=== PATIENT | female | born 1980 | race Hispanic/Latino ===

== ENCOUNTER 2024-08-12 18:24 | Emergency (ER) | payer OTHER ==
[~2024-08-12] VITALS: Ht 157.5 cm; Wt 113.0 kg
[2024-08-12] MEDS ORDERED: ACETAMINOPHEN 500 MG TAB PO ONE (18:45)
[2024-08-12 18:53] LABS: BASOPHILS 0.2 % (0-2); EOSINOPHILS 0.1 % (0-6); HEMATOCRIT 35.3 % (35.0-50.0); HEMOGLOBIN 11.8 g/dL (12.0-18.0); LYMPHOCYTES 10.8 % (24-44); MCH 29.7 (27-36); MCHC 33.5 g/dl (30-36); MCV 88.7 fl (81-99); MONOCYTES 9.3 % (0-12); NEUTROPHILS 79.6 % (39-80); PLATELET COUNT 230 K/uL (140-440); RBC 3.98 M/ul (4.3-5.7); RDW 15.2 (10.5-15.0)
[2024-08-12 19:10] LABS: ALBUMIN 2.4 g/dL (3.4-5.0); ALBUMIN/GLOBULIN RATIO 0.53 (1.1-2.4); ANION GAP 11.2 (7-21); BILIRUBIN, TOTAL 0.4 mg/dL (0.2-1.0); BUN/CREATININE RATIO 9.23 (6.0-28.6); CALCIUM 8.1 mg/dL (8.5-10.1); CREATININE, SERUM 0.65 mg/dL (0.55-1.02); POTASSIUM 3.2 mmol/L (3.5-5.1); PROTEIN, TOTAL 6.9 g/dL (6.4-8.2)
[2024-08-12 19:13] LABS: LACTIC ACID, BLOOD 1.1 mmol/L (0.4-2.0)
[2024-08-12 19:33] LABS: INFLUENZA B NAA NEGATIVE (NEGATIVE); RESPIRATORY SYNCYTIAL VIR NAA NEGATIVE (NEGATIVE)
[2024-08-12 20:10] LABS: BILIRUBIN, URINE NEGATIVE (negative); BLOOD/HGB, URINE MODERATE (Negative); KETONE, URINE NEGATIVE (Negative); LEUK ESTERASE, URINE NEGATIVE (negative); NITRITE, URINE NEGATIVE (negative)
[2024-08-12 20:18] LABS: EPITHELIAL CELLS, URINE SQUAMOUS 3+ /lpf (0-1+)
[2024-08-12 20:19] LABS: BACTERIA, URINE 1+ /hpf (negative); CASTS, URINE NONE SEEN \\lpf; COLLECTION TYPE, URINE CLEAN CATCH; CRYSTALS, URINE NONE SEEN (0-1+); RED BLOOD CELLS, URINE 0-1 /hpf (0-5); REFLEX CULTURE, URINE No (No); WHITE BLOOD CELLS, URINE 21-40 /HPF (0-5)
[2024-08-12] MEDS ORDERED: POTASSIUM CHLORIDE 10 MEQ TABCR PO ONE (20:45)
[2024-08-12] MEDS ORDERED: CEFTRIAXONE SODIUM 2 GM VIAL ONE (20:53)
[2024-08-12] MEDS ORDERED: CEFDINIR300 MG PO (20:58)
[2024-08-12] MEDS ORDERED: ONDANSETRON ODT4 MG PO (20:59)
[2024-08-12] MEDS ORDERED: AZITHROMYCIN500 MG PO (20:59)
[2024-08-12] MEDS ORDERED: AZITHROMYCIN 250 MG TAB PO ONE (21:00)
[2024-08-12] MEDS ORDERED: SODIUM CHLORIDE 0.9% 1,000 ML IV PRN (21:00)
[2024-08-12] MEDS ORDERED: CEFTRIAXONE SODIUM 2 GM in SODIUM CHLORIDE 0.9% 100 ML IV ONE (21:00)
[2024-08-12] MEDS ORDERED: CEFDINIR 300 MG HOME.PACK PO ONE (21:15)
[2024-08-12] MEDS ORDERED: ONDANSETRON 4 MG HOME.PACK SL ONE (21:15)
[2024-08-12 22:05] VITALS: BP 104/63
== END 2024-08-12 22:05 | disposition home or self-care (01) ==
LOC: ED 18:24
PROVIDERS: Emergency Medicine
DX: J18.9 Pneumonia, unspecified organism (principal)
CPT/HCPCS: 36415; 71045; 80053; 81001; 83605; 83735; 85025; 87040; 87502; 99284-25; A9270; J0696; J7030; U0002